=== PATIENT | female | born 1980 | race Caucasian/White ===

== ENCOUNTER → 2017-09-13 14:12 | Outpatient (CLI) | payer MEDICAID, SELFPAY ==
[2017-09-25 14:51] LABS: HPV Reflexed? NOT INDICATED
== END ==
PROVIDERS: Visit Provider Obstetrics & Gynecology
DX: Z12.4 Encounter for screening for malignant neoplasm of cervix (principal)
CPT/HCPCS: 88175; G0145

== ENCOUNTER → 2020-01-19 08:19 | Emergency (ER) | payer MEDICAID, SELFPAY ==
[2020-01-19 08:20] VITALS: BP 123/64; PULSE 80; RESP 16; TEMP 36.4; O2SAT 99; BMI 37.1
--- NOTE | 2020-01-19 08:31 | EKG12_ITS ---
Test Reason : Blood Pressure : / mmHG Vent. Rate : 063 BPM Atrial Rate : 063 BPM P-R Int : 130 ms QRS Dur : 096 ms QT Int : 408 ms P-R-T Axes : 045 035 039 degrees QTc Int : 417 ms Normal sinus rhythm with sinus arrhythmia Low voltage QRS Borderline ECG Confirmed by FABRICE NGUYEN, DENISE ([id number]), makeup editor LARISSA IZQUIERDO ([id number]) on 01/20/2020 8:22:49 AM Referred By: ARMANDO Confirmed By:DENISE AVINA MD
[2020-01-19] MEDS: Ondansetron 4 MG/2 ML Vial IV (08:49)
[2020-01-19] MEDS: Morphine 4 MG/ML Syringe IV (08:50)
[2020-01-19 09:01] LABS: Absolute Lymphocyte Count 2.03 X10^3/uL (0.83-4.51); Absolute Neutrophil Count 5.3 X10^3/uL (2.0-7.7); Basophil# 0.03 X10^3/uL; Basophil% 0.4 % (0-1); Eosinophil# 0.29 X10^3/uL; Eosinophils% 3.5 % (0-5); Hematocrit 39.7 % (37-47); Hemoglobin 12.7 g/dL (12.0-15.0); Lymphocyte # 2.03 X10^3/ul (4.0); Lymphocyte % 24.7 % (19-41); Mean Corpuscular Hgb 28.2 pg (27.0-32.0); Mean Platelet Vol. 10.1 fl (6.2-12.0); Monocyte# 0.58 X10^3/uL; Monocyte% 7.1 % (0-10); NRBC Flagged by Analyzer 0 % (0-5); Neutrophil # 5.25 X10^3/uL (2.7-7.7); Neutrophil % 63.8 % (47-70); Platelet Count 317 K/mm3 (150-450); RBC Distribution Width CV 13.7 % (11.6-14.6); RBC Distribution Width SD 44.3 fl (35.1-43.9); Red Blood Count 4.51 M/mm3 (4.2-5.4); White Blood Count 8.2 K/mm3 (4.4-11.0)
[2020-01-19 09:03] LABS: Color, Urine Yellow (Yellow); Glucose, Dipstick Normal (Normal); Ketone-Dipstick Negative (Negative); Leukocyte Esterase-Dipstick 25 /ul (Negative); Mucous, Urine 0 SEEN /hpf (<or=2+); Nitrite-Dipstick Negative (Negative); Occult Blood-Urine Negative /ul (Negative); Protein-Dipstick Negative (Negative); Red Blood Cells-Urine 0 SEEN /hpf (0-5); Specific Gravity, Urine 1.005 (1.002-1.030); Urine Bilirubin Dipstick Negative (Negative); Urine Clarity Sl. Cloudy (Clear); Urine Urobilinogen Normal (Normal)
--- NOTE | 2020-01-19 09:09 | ED.VIS.GI ---
History of Present Illness Chief Complaint: Abd Pain Narrative: Patient presenting for evaluation secondary to abdominal pain. Patient tells me that over the course of about the last week she has had left upper quadrant abdominal pain. She reports that it is basically located underneath her ribs on the left upper side of her abdomen. This is a sharp pain seems to be worse with deep palpation as well as specific movements. Associated with a sharp pain. Patient denies any fevers nausea vomiting diarrhea dysuria hematuria. Patient denies any injuries associated with this such as lifting twisting pushing pulling falls or stumbling. She is never had any prior similar episodes in the past. She does have a past surgical history of cholecystectomy. Patient denies any skin rashes. Patient was seen at an outside facility emergency department yesterday had CT imaging with IV contrast that was negative as well as lab work that was unremarkable except for some mild hematuria. Patient is still having persistent pain, so she is presenting to the emergency department. [id number] analgesics have not been alleviating her pain. Past Medical History - Allergies and Home Meds Allergies/Adverse Reactions: Allergies nitrofurantoin [From Macrobid] Allergy (Verified 01/19/20 08:19) Rash Primary Care Physician: Boni Grullon MD [Primary Care Provider] - Smoking Status: Former smoker Review of Systems All systems negative except as indicated General: Denies: Chills, Fever, Sweats Eyes: Denies: Visual changes - bilaterally, Diplopia ENT: Denies: Rhinorrhea, Sore throat Cardiovascular: Denies: Chest pain, Palpitations Respiratory: Denies: Dyspnea, Cough, Dyspnea on exertion Gastrointestinal: Reports: Abdominal pain Genitourinary: Denies: Dysuria, Hematuria, Frequency Musculoskeletal: Denies: Back pain, Extremity Pain Skin: Denies: Rash, Wounds Neurological: Denies: Headache, Weakness, Numbness Physical Exam Vital Signs/Narrative: Vital Signs Temp Pulse Resp BP Pulse Ox 01/19/20 08:20 97.6 F L 80 16 123/64 H 99 Inital Vital Signs reviewed: Yes General: Well nourished, Well developed, No Acute Distress Head: Normocephalic, Atraumatic Eyes: Perrl, EOMI ENT: Moist mucous membranes, No rhinorrhea Neck: Supple, Nontender Cardiovascular: Regular rate, Regular rhythm, No murmurs Respiratory: No distress, CTA bilaterally, Chest nontender Abdomen: Soft, Nondistended, Normal bowel sounds, Tender, - - Deep palpation of the patient's left upper quadrant with exhalation shows reproducible tenderness but no palpable masses or splenomegaly. No overlying vesicular rash noted. No rib tenderness is noted. Back: Nontender, Normal Inspection Extremities: Nontender, No edema Skin: Normal color, No rash Neurological: Alert, Oriented x3, Cranial nerves II-XII grossly intact, Normal Strength, Normal Sensation Psychological: Normal affect, Normal Mood Diagnostic/Tx/Re-eval Laboratory Data 01/19/20 01/19/20 01/19/20 08:41 08:41 08:41 WBC 8.2 RBC 4.51 Hgb 12.7 Hct 39.7 MCV 88.0 MCH 28.2 MCHC 32.0 RDW Std Deviation 44.3 H RDW Coeff of Joey 13.7 Plt Count 317 MPV 10.1 Immature Gran % (Auto) 0.500 Neut % (Auto) 63.8 Lymph % (Auto) 24.7 [place] % (Auto) 7.1 Eos % (Auto) 3.5 Baso % (Auto) 0.4 Absolute Neuts (auto) 5.3 Absolute Lymphs (auto) 2.03 Nucleated RBC % 0 D-Dimer Quant (PE/DVT) Sodium 140 Potassium 3.6 Chloride 106 Carbon Dioxide 30.0 Anion Gap 4 L BUN 9 Creatinine 0.74 Estim Creat Clear Calc 96.50 Est GFR (MDRD) Af Amer 113 Est GFR (MDRD) Non-Af 93 BUN/Creatinine Ratio 12.2 Glucose 92 Lactic Acid 1.4 Calcium 8.7 Total Bilirubin 0.40 AST 11 L ALT 18 Alkaline Phosphatase 78 Troponin I < 0.015 Total Protein 7.3 Albumin 3.3 Globulin 4.0 Albumin/Globulin Ratio 0.8 L Lipase 67 L Urine Color Urine Clarity Urine pH Ur Specific [place] Urine Protein Urine Glucose (UA) Urine Ketones Urine Occult Blood Urine Nitrite Urine Bilirubin Urine Urobilinogen Ur Leukocyte Esterase Urine RBC Urine WBC Ur Squamous Epith Cells Urine Bacteria Urine Mucus 01/19/20 01/19/20 08:41 08:41 WBC RBC Hgb Hct MCV MCH MCHC RDW Std Deviation RDW Coeff of Joey Plt Count MPV Immature Gran % (Auto) Neut % (Auto) Lymph % (Auto) [place] % (Auto) Eos % (Auto) Baso % (Auto) Absolute Neuts (auto) Absolute Lymphs (auto) Nucleated RBC % D-Dimer Quant (PE/DVT) 0.37 Sodium Potassium Chloride Carbon Dioxide Anion Gap BUN Creatinine Estim Creat Clear Calc Est GFR (MDRD) Af Amer Est GFR (MDRD) Non-Af BUN/Creatinine Ratio Glucose Lactic Acid Calcium Total Bilirubin AST ALT Alkaline Phosphatase Troponin I Total Protein Albumin Globulin Albumin/Globulin Ratio Lipase Urine Color Yellow Urine Clarity Sl. Cloudy Urine pH 7.0 Ur Specific [place] 1.005 Urine Protein Negative Urine Glucose (UA) Normal Urine Ketones Negative Urine Occult Blood Negative Urine Nitrite Negative Urine Bilirubin Negative Urine Urobilinogen Normal Ur Leukocyte Esterase 25 H Urine RBC 0 SEEN Urine WBC 0-5 SEEN Ur Squamous Epith Cells 0-5 SEEN Urine Bacteria 1+ Urine Mucus 0 SEEN - Medical Decision Making Patient presenting for evaluation secondary to abdominal pain. This did localize in the left upper quadrant and was mainly with very deep palpation. IV was established laboratory studies were obtained. CBC, chemistry, lipase and lactic acid all found to be within normal limits. I added on a D-dimer for the potential for abnormal presentation of PE this was negative. Troponin was negative. EKG found to be unremarkable. Patient was given morphine and Zofran. I was able to review the patient's CT scan from yesterday. This was a CT abdomen and pelvis with IV contrast which showed no acute inflammatory process, did show some potential mural thickening of the descending colon and sigmoid colon that was thought to be 2 under distention. If this was the cause of the patient's pain she would likely have pain throughout the left side of her abdomen rather than localized to the very upper side of the left upper quadrant under her ribs. Likewise if she had some splenic infarcts or abscess or other abnormalities there that would have showed up on her CT yesterday as she has had pain for a week. She has no signs of trauma, there is no vesicular rash, her work-up is otherwise negative. This still is most likely musculoskeletal and I do not feel that repeat imaging would provide any sort of additional diagnostic information at this time. Patient be placed on a Medrol pack and lidocaine patches. I did inform her that she should follow-up with her primary care physician this week. She voiced understanding and was discharged. ED Disposition - Plan for ED Patient: Disposition: Home or Assisted Living Diagnosis: Abdominal wall pain Instructions: ED Abdominal Pain Unkn Cause Fem, ED Strain Abdominal Muscle Prescriptions: Lidocaine [Lidoderm] 1 ea TP DAILY #10 adh..patch Prescription Printed MethylPREDNISolone DosePak [Medrol DosePak] 4 mg PO UD #1 box Prescription Printed Referrals: Boni Grullon MD [Primary Care Provider] - 3-5 Days
[2020-01-19 09:12] LABS: Bacteria 1+ /hpf (None Seen); Squamous Epithelial Cells - UA 0-5 SEEN /hpf (5-10); White Blood Cells 0-5 SEEN /hpf (0-5)
[2020-01-19 09:13] LABS: D-Dimer Quantitative (DVT/PE) 0.37 FEU/ug/m (0.27-0.49)
[2020-01-19 09:21] LABS: ALB/GLOB Ratio 0.8 RATIO (0.9-2.4); AST(SGOT) 11 U/L (15-37); Alanine Aminotransfer ALT/SGPT 18 U/L (13-56); Albumin, Serum 3.3 g/dL (3.2-5.0); Alkaline Phosphatase 78 U/L (45-117); Anion Gap 4 (5-15); BUN 9 mg/dL (7-18); BUN/Creat Ratio 12.2 RATIO (10-20); Calcium,Total 8.7 mg/dL (8.5-10.1); Chloride 106 mmol/L (98-107); Creatinine, Serum 0.74 mg/dL (0.55-1.02); EST Glomerular Filtration Rate 93 mL/min (>60); Est Glom Filt Rate - Afr Amer 113 mL/min (>60); Glucose 92 mg/dL (74-106); Lipase 67 U/L (73-393); Potassium 3.6 mmol/L (3.5-5.1); Protein, Total 7.3 g/dL (6.4-8.2); Sodium Level 140 mmol/L (136-145)
[2020-01-19 09:25] LABS: Lactic Acid 1.4 mmol/L (0.4-1.9)
== END | disposition home or self-care (01) ==
PROVIDERS: Emergency Provider Emergency Medicine; PCP Family Medicine
DX: R10.12 Left upper quadrant pain (principal); R31.9 Hematuria, unspecified
CPT/HCPCS: 80053; 81001; 83605; 83690; 84484; 85025; 85379; 93005; 96374; 96375; 99283; A4216; J2405

== ENCOUNTER 2020-01-23 08:13 | Emergency (ER) | payer MEDICAID, SELFPAY ==
[2020-01-19 08:20] VITALS: BMI 37.1
[2020-01-23 08:14] VITALS: BP 136/73; PULSE 72; RESP 18; TEMP 36.2; O2SAT 99; BMI 40.9
--- NOTE | 2020-01-23 08:27 | ED.DCSUM_ITS ---
History of Present Illness Chief Complaint: Other, Pain/Inj Informant: Patient Narrative: 39-year-old female presents with a left lower rib pain. States is been present for approximately week and a half. Patient has been seen by multiple providers for this issue. Patient was seen here approximately 4 days ago where she received extensive lab work-up. Patient has received CT of her abdomen with IV contrast which was negative. Denies any trauma to this area. Denies any nausea, vomiting, diarrhea, urinary symptoms. States that she is currently on Medrol Dosepak as well as using Lidoderm patches. Patient was given Flexeril by her primary care provider but continues to have pain. States it has become more constant. States that she felt a pop this morning in that area. Denies any numbness or tingling. Denies any chest pain or shortness of breath. Past Medical History - Allergies and Home Meds Allergies/Adverse Reactions: Allergies nitrofurantoin [From Macrobid] Allergy (Verified 01/23/20 08:17) Rash Primary Care Physician: Boni Grullon MD [Primary Care Provider] - Prior records reviewed: Yes Past Medical History: None Surgical History: no surgical history Lives: Spouse/ Significant Other Smoking Status: Former smoker Alcohol: None Drugs: None Review of Systems General: Denies: Chills, Fever, Sweats Eyes: Denies: Visual changes - bilaterally, Diplopia ENT: Denies: Rhinorrhea, Sore throat Cardiovascular: Reports: Chest pain. Denies: Palpitations Respiratory: Denies: Dyspnea, Cough, Dyspnea on exertion Gastrointestinal: Denies: Abdominal pain, Nausea, Vomiting, Diarrhea, Melena, Hematochezia Genitourinary: Denies: Dysuria, Hematuria, Frequency Musculoskeletal: Denies: Back pain, Extremity Pain Skin: Denies: Rash, Wounds Neurological: Denies: Headache, Weakness, Numbness Physical Exam Vital Signs/Narrative: Vital Signs Temp Pulse Resp BP Pulse Ox 01/23/20 08:14 97.1 F L 72 18 136/73 H 99 Inital Vital Signs reviewed: Yes General: Well nourished, Well developed, No Acute Distress Head: Normocephalic, Atraumatic Eyes: Perrl, EOMI ENT: Moist mucous membranes, No rhinorrhea Neck: Supple, Nontender Cardiovascular: Regular rate, Regular rhythm, No murmurs Respiratory: No distress, CTA bilaterally, - - focal tenderness over the left lower ribs in the lateral area. No overlying skin changes. Abdomen: Soft, Nontender, Nondistended, Normal bowel sounds Back: Nontender, Normal Inspection Extremities: Nontender, No edema Skin: Normal color, No rash Neurological: Alert, Oriented x3, Cranial nerves II-XII grossly intact, Normal Strength, Normal Sensation Psychological: Normal affect, Normal Mood Diagnostic/Tx/Re-eval Chest X-Ray - ED: 1 View, Left Infiltrate Clinical Impression(s) from Imaging Studies Chest X-Ray 01/23/20 08:35 IMPRESSION: Mild increased markings at the left lung base suggests mild degree of atelectasis and/or early infiltrate. Electronically Signed: Gurdeep Sangeetha, at 9:09 EDT , Service support , Chest CTA 01/23/20 09:19 IMPRESSION: Mild degree of increased markings at the left lung base suggesting mild atelectasis and/or early infiltrate. Electronically Signed: Gurdeep Vivas, at 9:49 EDT , Service support , - Medical Decision Making Patient appears well nontoxic. Vital signs within normal limits. Patient has tenderness over her left chest. X-ray shows possible early infiltrate. CTA was done which confirms possible early infiltrate without pulmonary embolism. Patient had extensive work-up 3 days ago including EKG and troponin. I do not feel these need to be repeated. Patient was given intramuscular Toradol which did improve her pain. Advised that she can take Naprosyn with her Medrol Dos epak. Patient will be given inhaler and doxycycline. Asked to follow-up with primary care. Asked to return for new or worsening symptoms. Patient agreeable and discharged home in stable condition. Impression: 1. Atypical pneumonia 2. Left chest wall inflammation 3. History of tobacco abuse ED Disposition - Plan for ED Patient: Disposition: Home or Assisted Living Instructions: Pneumonia Prescriptions: Doxycycline 100 mg PO BID #14 cap Prescription Printed Albuterol Inhaler [Ventolin Hfa] 1 - 2 puff INHALATION Q4H PRN PRN #1 inhaler PRN Reason: Wheezing Prescription Printed Referrals: Boni Grullon MD [Primary Care Provider] -
--- NOTE | 2020-01-23 08:35 | RAD_ITS ---
STUDY: X-RAY CHEST REASON FOR EXAM: Female, 39 years old. LEFT SIDE FLANK PAIN, SEEN WILL FOR SAME. HEARD A and quot;POP and quot; AND PAIN HAS BECOME CONSTANT. RADIATION TO SHOULDER AND BACK TECHNIQUE: PA and lateral views of the chest. COMPARISON: None. FINDINGS: Mild degree of increased markings at the left lung base suggestive of a left basilar atelectasis and/or early infiltrate. There is no demonstrated pleural abnormality. Normal size heart. Normal mediastinum and evette. Normal visualized pulmonary arteries. Normal visualized aortic arch and descending thoracic aorta. Normal visualized thoracic spine. Normal visualized ribs, clavicles, and shoulders. Surgical clips are seen in the right upper quadrant most likely secondary to prior cholecystectomy. RAD/Chest PA and Lateral IMPRESSION: Mild increased markings at the left lung base suggests mild degree of atelectasis and/or early infiltrate. Electronically Signed: Gurdeep Vivas, at 9:09 EDT , Service support ,
[2020-01-23] MEDS: Ketorolac 15 MG/ML Vial IM (08:56)
--- NOTE | 2020-01-23 09:19 | CT_ITS ---
STUDY: CTA CHEST REASON FOR EXAM: Female, 39 years old. LEFT RIB PAIN RADIATION DOSAGE (If Supplied By Facility): CTDIvol = ( 13.84 ) mGy, DLP = ( 480.12 ) mGycm TECHNIQUE: The examination was performed with the intravenous administration of IV 100mL Isovue-370. Post-processing of the angiographic images was performed, with multiplanar reformation and 3D reconstruction. Individualized dose optimization techniques were used for this CT. COMPARISON: None. FINDINGS: Normal enhancement of the main pulmonary artery and right and left pulmonary arteries. Normal enhancement of the bilateral peripheral pulmonary arteries. There is no demonstrated pulmonary embolism. Normal thoracic aorta and visualized great vessels. There is no demonstrated aortic dissection. Normal heart and pericardium. Normal mediastinum. Normal hilar regions. Normal visualized trachea and bronchi. The lungs are well expanded. Mild degree of increased markings at the left lung base suggestive of left basilar atelectasis and/or early infiltrate. Normal pleura. Normal chest wall structures. Normal osseous structures. Normal visualized upper abdomen. CT/CTA Chest W/WO Contrast IMPRESSION: Mild degree of increased markings at the left lung base suggesting mild atelectasis and/or early infiltrate. Electronically Signed: Gurdeep Vivas, at 9:49 EDT , Service support ,
[2020-01-23 10:48] VITALS: BP 138/70; PULSE 70; RESP 18; TEMP 36.6; O2SAT 99
== END 2020-01-23 10:51 | disposition home or self-care (01) ==
PROVIDERS: Emergency Provider Emergency Medicine; PCP Family Medicine
DX: J18.9 Pneumonia, unspecified organism (principal); Z87.891 Personal history of nicotine dependence; Z88.1 Allergy status to other antibiotic agents
CPT/HCPCS: 71046; 71275; 96372; 99282; Q9967

== ENCOUNTER 2021-07-07 11:38 | Emergency (ER) | payer MEDICAID, SELFPAY ==
[2021-07-07 11:39] VITALS: BP 134/87; PULSE 92; RESP 16; TEMP 36.4; O2SAT 97; BMI 39.4
--- NOTE | 2021-07-07 12:28 | EDS_ITS ---
HPI History of Present Illness HPI Narrative: Patient presents with right shoulder and arm pain that has been getting worse over the past 2 weeks. Patient states that her primary care physician did a chest x-ray because her pain was mainly in the right scapular area. Patient had pain in that area in the past when she had pneumonia. Chest x-ray did not show any pneumonia this time. There is no fracture of the scapula or shoulder. Patient states that now her pain is in her right cervical paraspinal area and radiates into the right trapezius then into the right shoulder and down the right arm to her wrist. Patient admits to some numbness and tingling in her right hand. Patient denies any weakness but states her right arm feels heavier than her left. Patient describes her pain as aching. Patient states it is worse with certain movements. Patient denies any trauma or injury. Chief Complaint: Upper Extremity Injury Informant: patient Onset/Context/Timing Onset: Weeks (1) Context: Gradual Onset Timing: Continuous Quality of Pain: Aching Location: Right cervical paraspinal area, right trapezius, right upper extremity Worsened by: Certain movements Relieved by: Nothing Associated Symptoms Associated Symptoms: Positive for Parasthesia; Negative for Weakness and Loss of Funtion PFSH PFSH Home Medications Cetirizine Hcl [Zyrtec] 10 mg PO DAILY 02/04/16 [History Last Taken 01/19/20] metoprolol tartrate 25 mg PO DAILY 01/19/20 [History Last Taken 01/19/20] sertraline 100 mg PO DAILY 01/19/20 [History Last Taken 01/18/20] cyclobenzaprine 10 mg PO QHS PRN PRN #10 tablet 07/07/21 [Rx Last Taken Unknown] hydrocodone-acetaminophen 1 tab PO Q6H PRN PRN 3 Days #10 tablet 07/07/21 [Rx Last Taken Unknown] Allergy/AdvReac Type Severity Reaction Status Date / Time nitrofurantoin Allergy Rash Verified 07/07/21 11:40 [From Macrobid] Surgical History (Updated 07/07/21 @ 12:[address] Rafael Oro DO) Hx of cholecystectomy S/P tendon repair Social History Smoking Status: Former smoker ROS ROS ED Constitutional Constitutional ED: Denies chills or fever(s) Eyes Eyes: Denies blurry vision or change in vision ENT ENT ED: Denies rhinorrhea or sore throat Cardiovascular Cardiovascular: Denies chest pain or palpitations Respiratory/Chest Respiratory/Chest: Denies cough or dyspnea Gastrointestinal Gastrointestinal: Denies nausea or vomiting Genitourinary Genitourinary ED: Denies dysuria or hematuria Musculoskeletal Musculoskeletal: Reports neck pain; Denies back pain Integumentary Denies abscess or rash Neurologic Neurologic: Denies headache(s) or weakness Allergic/Immunologic Allergic/Immunologic ED: Denies mouth swelling or urticaria EXAM Physical Exam Const Vital Signs: 07/07/21 11:39 Temperature 97.6 F L Temperature Source Temporal Pulse Rate 92 Respiratory Rate 16 Blood Pressure 134/87 H Blood Pressure Mean 102 Pulse Ox 97 Oxygen Delivery Method Room Air Positive well nourished and well developed General Appearance ED: well developed and NAD Neck supple Neck Narrative: There is tenderness over the right cervical paraspinal muscles. There is no midline tenderness. There is no bony crepitance or step-off noted. Spurling's test caused pain in the right trapezius and shoulder area but no symptoms in her right arm or wrist. Back/Spine Cervical Spine: Negative for cervical spine tenderness Thoracic Spine / Upper Back: Negative for thoracic spinal tenderness Extremity normal to inspection and full ROM Extremity Narrative: There is good range of motion of the right upper extremity. There is no obvious deformity. Radial pulses are equal bilaterally. Sensation was intact to light touch in the radial, median, and ulnar areas. Strength is 5/5 in the radial, median, and ulnar areas. Neuro oriented x3, CN's II-XII intact bilaterally, moves all extremities and no focal motor deficits Sensorium / Orientation: alert Psych mental status grossly normal MDM MDM MDM Narrative Medical decision making narrative: HeadPatient was given a dose of [place] here. CT scan of the cervical spine was obtained there is no acute abnormality. This was interpreted by the radiologist and reviewed by myself. Patient was advised of her findings. Patient was feeling somewhat better after the [place]. Patient was given a prescription for a short course of [place]. Patient was also given a prescription for Flexeril to take at bedtime. Patient was instructed to follow- up with her primary care physician in 3 to 5 days for further evaluation. Patient was instructed to continue with her physical therapy as prescribed. Patient understood and was agreeable with the plan. All questions were answered. Discharge Plan Triage Chief Complaint: Upper Extremity Injury ED Provider: Rafael Oro Dx/Rx/DC Orders Clinical Impression: Paresthesia of right upper extremity, Neck pain Instructions: ED Neck Pain, ED Paraesthesias Prescriptions: New hydrocodone-acetaminophen [hydrocodone-acetaminophen] 1 TABLET tablet 1 tab PO Q6H PRN PRN (Reason: Pain) 3 Days Qty: 10 RF: 0 cyclobenzaprine [cyclobenzaprine] 10 MG tablet 10 mg PO QHS PRN PRN (Reason: Muscle Spasm) Qty: 10 RF: 0 No Action Cetirizine Hcl [Zyrtec] 10 MG tablet 10 mg PO DAILY RF: 0 sertraline 100 MG tablet 100 mg PO DAILY RF: 0 metoprolol tartrate 25 MG tablet 25 mg PO DAILY RF: 0 Primary Care Provider: Boni Grullon Referrals: Boni Grullon MD [Primary Care Provider] - 3-5 Days Disposition Disposition: Home, Self Care
--- NOTE | 2021-07-07 12:34 | CT_ITS ---
STUDY: CT CERVICAL SPINE WITHOUT CONTRAST REASON FOR EXAM: Female, 41 years old. Injury/Pain RADIATION DOSAGE (If Supplied By Facility): CTDIvol = ( 23.60 ) mGy, DLP = ( 587.88 ) mGycm TECHNIQUE: High resolution transaxial imaging was performed without contrast material. Sagittal and coronal images were reconstructed. Individualized dose optimization techniques were used for this CT. COMPARISON: None FINDINGS: Normal craniovertebral junction. Normal anterior atlantoaxial articulation. Normal odontoid process. There is reversal of the normal cervical lordosis. Normal vertebral bodies and posterior osseous elements. C2-3: Normal endplates. Normal disc height and morphology. Normal central canal and intervertebral neuroforamina. C3-4: Normal endplates. Normal disc height and morphology. Normal central canal and intervertebral neuroforamina. C4-5: Normal endplates. Normal disc height and morphology. Normal central canal and intervertebral neuroforamina. C5-6: Normal endplates. Normal disc height and morphology. Normal central canal and intervertebral neuroforamina. C6-7: Normal endplates. Normal disc height and morphology. Normal central canal and intervertebral neuroforamina. C7-T1: Normal endplates. Normal disc height and morphology. Normal central canal and intervertebral neuroforamina. Normal visualized soft tissue structures. CT/Spine Cervical without Contras IMPRESSION: Normal unenhanced CT examination of the cervical spine. Electronically Signed: Gurdeep Vivas MD at 13:15 EDT ,
[2021-07-07] MEDS: HYDROcodone Bitartrate/Apap 5/325 Tablet PO (13:33)
== END 2021-07-07 13:52 | disposition home or self-care (01) ==
PROVIDERS: Emergency Provider Emergency Medicine; PCP Family Medicine; Visit Provider Emergency Medicine
DX: M54.2 Cervicalgia (principal); Z87.891 Personal history of nicotine dependence; R20.2 Paresthesia of skin
CPT/HCPCS: 72125; 99283

== ENCOUNTER 2023-06-19 12:19 | Emergency (ER) | payer MEDICAID, SELFPAY ==
[2023-06-19] VITALS (10 sets, daily range): BP systolic 106–124; BP diastolic 59–78; PULSE 64–97; RESP 17–25; TEMP 36.4–36.7; O2SAT 93–99; BMI 36.5
--- NOTE | 2023-06-19 12:58 | EKG12_ITS ---
Test Reason : PALPITATIONS Blood Pressure : / mmHG Vent. Rate : 086 BPM Atrial Rate : 086 BPM P-R Int : 152 ms QRS Dur : 084 ms QT Int : 362 ms P-R-T Axes : 066 041 055 degrees QTc Int : 433 ms Normal sinus rhythm Cannot rule out Anterior infarct , age undetermined Abnormal ECG Confirmed by Jasper Chester ([id number]), index editor LARISSA IZQUIERDO ([id number]) on 06/21/2023 10:55:09 AM Referred By: Confirmed By:Jasper Chester
--- NOTE | 2023-06-19 12:58 | EX.ED.DYSGE1 ---
HPI History of Present Illness Chief Complaint: Palpitations Detail of Chief Complaint: Palpitations Informant: patient Narrative Narrative: Patient presents the emergency department complaint of palpitations. Patient thinks she was in A-fib. She had similar episode 2 years ago and saw human machine interface engineer and was started on metoprolol 25 mg daily. Patient states that she was sitting a eating at rest when started having little bit of a headache and a discomfort in her upper chest and noted that her heart was racing and skipping beats. She had a pulse ox at home which checked her heart rate and it was in the 150s. EMS was called. Apparently they noted A-fib but then it resolved. Patient denies any chest pain currently has no complaints. She is not been ill. Denies recent travel or surgery. PFSH PFSH Home Medications Cetirizine Hcl [Zyrtec] 10 mg PO DAILY 02/04/16 [History Last Taken 01/19/20] metoprolol tartrate 25 mg tablet 25 mg PO DAILY 01/19/20 [History Last Taken 01/19/20] sertraline 100 mg tablet 100 mg PO DAILY 01/19/20 [History Last Taken 01/18/20] cyclobenzaprine 10 mg tablet 10 mg PO QHS PRN PRN Muscle Spasm #10 TABLETS 07/07/21 [Rx Last Taken Unknown] hydrocodone-acetaminophen 5-325mg 5mg-325mg 1 tab PO Q6H PRN PRN Pain 3 days #10 TABLETS 07/07/21 [Rx Last Taken Unknown] Allergy/AdvReac Type Severity Reaction Status Date / Time nitrofurantoin Allergy Rash Verified 07/07/21 11:40 [From Macrobid] Surgical History (Updated 07/07/21 @ 12:[address] Rafael Oro DO) Hx of cholecystectomy S/P tendon repair Social History Smoking Status: Former smoker ROS ROS ED Review of Systems ROS Unobtainable: other Constitutional Constitutional ED: Reports lethargy; Denies chills, fever(s), sweats or weight loss Eyes Eyes: Denies blurry vision, change in vision or diplopia ENT ENT ED: Denies rhinorrhea or sore throat Cardiovascular Cardiovascular: Reports palpitations and racing heartbeat; Denies chest pain or orthopnea Respiratory/Chest Respiratory/Chest: Denies cough, dyspnea, dyspnea on exertion, orthopnea or sputum Gastrointestinal Gastrointestinal: Denies abdominal pain, diarrhea, nausea or vomiting Genitourinary Genitourinary ED: Denies dysuria, hematuria or urinary frequency Musculoskeletal Musculoskeletal: Denies arthralgias, back pain, myalgias or neck pain Integumentary Denies abscess, Abrasions or rash Neurologic Neurologic: Denies headache(s) or weakness Psychiatric Psychiatric: Denies anxiety, depression or suicidal thoughts Endocrine Endocrinology: Denies polydipsia, polyphagia or polyuria Hematologic/Lymphatic Hematologic/Lymphatic: Denies easy bleeding, easy bruising or lymphadenopathy Allergic/Immunologic Allergic/Immunologic ED: Denies mouth swelling, tongue swelling or urticaria EXAM Physical Exam Const Vital Signs: 06/19/23 12:20 06/19/23 12:43 06/19/23 12:45 Temperature 98.1 F Temperature Source Oral Pulse Rate 88 89 95 Respiratory Rate 22 H 22 H 22 H Blood Pressure 118/76 106/70 Blood Pressure Mean 90 81 Pulse Ox 96 95 94 Oxygen Delivery Method Room Air 06/19/23 13:01 06/19/23 13:10 06/19/23 13:15 Temperature Temperature Source Pulse Rate 97 92 Respiratory Rate 21 H 23 H Blood Pressure 107/73 Blood Pressure Mean 83 Pulse Ox 95 95 93 Oxygen Delivery Method 06/19/23 13:20 06/19/23 13:30 06/19/23 14:00 Temperature Temperature Source Pulse Rate 87 87 Respiratory Rate 17 25 H Blood Pressure 107/73 106/65 117/59 L Blood Pressure Mean 84 78 76 Pulse Ox 96 93 97 Oxygen Delivery Method Positive well nourished and well developed General Appearance ED: well developed and NAD HEENT Reports TM's clear and moist mucous membranes normocephalic and atraumatic; Negative for trauma or tenderness Tympanic Membrane ED: Yes TM's clear Eyes PERRL and EOMs intact bilaterally General Eye ED: Negative for pale conjunctiva or scleral icterus Neck no lymphadenopathy, supple and no JVD General: Negative for tenderness Chest Wall inspection of chest normal and palpation of chest normal Chest: Negative for tenderness Resp normal respiratory effort and clear to auscultation bilaterally Effort and Inspection: Negative for respiratory distress or pain with movement Auscultation: Negative for rhonchi, wheezes or diminished lung sounds Cardio regular rate, regular rhythm, S1 normal heart sound, S2 normal heart sound and no murmurs Peripheral Pulses: pulses 2+ throughout GI normal to inspection, nondistended, normoactive bowel sounds, soft to palpation, non-tender, non-distended and no masses Back/Spine no CVA tenderness and no thoracic nor lumbar tenderness Extremity normal to inspection General Extremety ED: Negative for edema General Extremity: Negative for edema Neuro oriented x3, CN's II-XII intact bilaterally, no sensory deficits noted and gait normal Sensorium / Orientation: awake, alert, oriented to person, oriented to place and oriented to time Motor Exam: strength 5/5 throughout and strength abnormal Psych mental status grossly normal Skin no rashes or lesions noted and no wounds MDM MDM MDM Narrative Medical decision making narrative: Patient presents with tachycardia now resolved. History of A-fib. Currently on metoprolol. IV line established. EKG obtained arrival showed a sinus rhythm with ventricular rate of 86 bpm with no acute ST segment changes. I did review her EKG that was sent in by EMS and at that time she was sinus rhythm as well with a heart rate of 83 bpm. CBC with differential white count of 10.8 with hemoglobin 14.4 and platelet count of 346. Chemistries unremarkable. Troponin was normal at 3. 1 view chest x-ray unremarkable. Discussed case with human machine interface engineer on-call Dr. Boles. Did not feel any further treatment was indicated at this time and asked that patient follow-up with her primary care physician. Patient will be discharged to home with diagnosis of paroxysmal A-fib. It was not felt she needed anticoagulation. Patient comfortable with plan. Lab Data Attestation: I reviewed the patient's lab results. Labs: Laboratory Results - last 24 hr 06/19/23 13:00 WBC 10.8 RBC 5.13 Hgb 14.4 Hct 44.8 MCV 87.3 MCH 28.1 MCHC 32.1 RDW Std Deviation 43.1 RDW Coeff of Joye 13.4 Plt Count 346 MPV 11.0 Immature Gran % (Auto) 0.600 Neut % (Auto) 65.5 Lymph % (Auto) 27.1 [place] % (Auto) 3.4 Eos % (Auto) 2.8 Baso % (Auto) 0.6 Absolute Neuts (auto) 7.1 Absolute Lymphs (auto) 2.92 Nucleated RBC % 0 Sodium 138 Potassium 3.4 L Chloride 104 Carbon Dioxide 26.0 Anion Gap 8 BUN 11 Creatinine 0.81 Estim Creat Clear Calc 109.50 Est GFR (MDRD) Af Amer 100 Est GFR (MDRD) Non-Af 83 BUN/Creatinine Ratio 13.6 Glucose 115 H Calcium 9.3 Troponin I High Sens 3 Radiography Diagnostic Testing: Clinical Impression(s) from Imaging Studies Chest X-Ray 06/19/23 13:14 IMPRESSION: Normal x-ray examination of the chest. Electronically Signed: Gurdeep Vivas MD at 14:13 EDT , 1 view chest x-ray obtained interpreted by myself no evidence of infiltrate or pneumothorax or acute disease process. Radiology in agreement. EKG Initial EKG: Attestation: I personally reviewed and interpreted this EKG as follows: Comments: Sinus rhythm with ventricular rate of 86 bpm with no acute ST segment changes Discharge Plan Triage Chief Complaint: Palpitations ED Provider: Maurice Black Dx/Rx/DC Orders Clinical Impression: AF (paroxysmal atrial fibrillation) Instructions: AFib Dc Prescriptions: No Action Cetirizine Hcl [Zyrtec] 10 MG tablet 10 mg PO DAILY Patient Comments: ALLERGIES sertraline 100 MG tablet 100 mg PO DAILY metoprolol tartrate 25 MG tablet 25 mg PO DAILY hydrocodone-acetaminophen [hydrocodone-acetaminophen] 1 TABLET tablet 1 tab PO Q6H PRN PRN (Reason: Pain) 3 Days Qty: 10 0RF cyclobenzaprine [cyclobenzaprine] 10 MG tablet 10 mg PO QHS PRN PRN (Reason: Muscle Spasm) Qty: 10 0RF Primary Care Provider: Boni Grullon Referrals: Greg Boles MD [Med Staff - Active Staff] - As Needed Boni Grullon MD [Primary Care Provider] - 3-5 Days Disposition Disposition: Home, Self Care
[2023-06-19] MEDS: 0.9% Normal Saline (1000mL) 1,000 ML 150 ML IV (13:09)
--- NOTE | 2023-06-19 13:14 | RAD_ITS ---
STUDY: X-RAY CHEST REASON FOR EXAM: Female, 43 years old. Tachycardia TECHNIQUE: Single AP portable view of the chest. COMPARISON: Comparison is made with prior study January 23, 2020. FINDINGS: EKG electrodes are seen. The lungs are clear and expanded. There is no demonstrated pleural abnormality. Normal size heart. Normal mediastinum and evette. Normal visualized pulmonary arteries. Normal visualized aortic arch and descending thoracic aorta. Normal visualized thoracic spine. Normal visualized ribs, clavicles, and shoulders. There is no demonstrated abnormality of the visualized soft tissue structures of the upper abdomen. RAD/Chest 1 View (Portable) IMPRESSION: Normal x-ray examination of the chest. Electronically Signed: Gurdeep Vivas MD at 14:13 EDT ,
[2023-06-19 13:17] LABS: Absolute Lymphocyte Count 2.92 X10^3/uL (0.83-4.51); Absolute Neutrophil Count 7.1 X10^3/uL (2.0-7.7); Basophil# 0.06 X10^3/uL; Basophil% 0.6 % (0-1); Eosinophils% 2.8 % (0-5); Hematocrit 44.8 % (37-47); Hemoglobin 14.4 g/dL (12.0-15.0); Lymphocyte # 2.92 X10^3/ul (0.83-4.51); Lymphocyte % 27.1 % (19-41); Mean Corp Hgb Conc 32.1 g/dL (32-36); Mean Corpuscular Hgb 28.1 pg (27.0-32.0); Mean Corpuscular Volume 87.3 fL (81-99); Monocyte# 0.37 X10^3/uL; Monocyte% 3.4 % (0-10); NRBC Flagged by Analyzer 0 % (0-5); Neutrophil # 7.08 X10^3/uL (2.7-7.7); Neutrophil % 65.5 % (47-70); Platelet Count 346 K/mm3 (150-450); RBC Distribution Width CV 13.4 % (11.6-14.6); RBC Distribution Width SD 43.1 fl (35.1-43.9); Red Blood Count 5.13 M/mm3 (4.2-5.4); White Blood Count 10.8 K/mm3 (4.4-11.0)
[2023-06-19 13:35] LABS: Anion Gap 8 (5-15); BUN 11 mg/dL (7-18); BUN/Creat Ratio 13.6 RATIO (10-20); Calcium,Total 9.3 mg/dL (8.5-10.1); Chloride 104 mmol/L (98-107); Creatinine, Serum 0.81 mg/dL (0.55-1.02); EST Glomerular Filtration Rate 83 mL/min (>60); Est Glom Filt Rate - Afr Amer 100 mL/min (>60); Glucose 115 mg/dL (74-106); Potassium 3.4 mmol/L (3.5-5.1); Sodium Level 138 mmol/L (136-145); Troponin-I HS 3 pg/mL (3.0-54.0)
== END 2023-06-19 14:32 | disposition home or self-care (01) ==
PROVIDERS: Emergency Provider Emergency Medicine; PCP Family Medicine; Visit Provider Emergency Medicine
DX: I48.0 Paroxysmal atrial fibrillation (principal); Z87.891 Personal history of nicotine dependence; Z79.899 Other long term (current) drug therapy
CPT/HCPCS: 71045; 80048; 84484; 85025; 93005; 96360; 96361; 99283

== ENCOUNTER 2024-04-10 05:40 | Emergency (ER) | payer MEDICAID, SELFPAY ==
[2024-04-10 05:41] VITALS: BP 119/97; PULSE 120; RESP 18; TEMP 37; O2SAT 98; BMI 37.4
[2024-04-10 05:53] VITALS: PULSE 89; RESP 17; O2SAT 98
--- NOTE | 2024-04-10 05:55 | EKG12_ITS ---
Test Reason : A FIB Blood Pressure : */* mmHG Vent. Rate : 166 BPM Atrial Rate : 178 BPM P-R Int : * ms QRS Dur : 78 ms QT Int : 256 ms P-R-T Axes : * 55 17 degrees QTcB Int : 425 ms Critical Test Result: High HR Atrial fibrillation Nonspecific ST depression Abnormal ECG Confirmed by Jasper Chester ([id number]), order editor LARISSA IZQUIERDO ([id number]) on 04/11/2024 9:37:24 AM Referred By: DARRYL Confirmed By: Jasper Chester
--- NOTE | 2024-04-10 05:56 | EKG12_ITS ---
Test Reason : RYTHM CHANGE Blood Pressure : */* mmHG Vent. Rate : 82 BPM Atrial Rate : 82 BPM P-R Int : 150 ms QRS Dur : 84 ms QT Int : 380 ms P-R-T Axes : 72 39 52 degrees QTcB Int : 443 ms Normal sinus rhythm Low voltage QRS Borderline ECG Confirmed by Jasper Chester ([id number]), deputy editor in chief LARISSA IZQUIERDO ([id number]) on 04/11/2024 9:36:57 AM Referred By: DRARYL Confirmed By: Jasper Chester
[2024-04-10 06:08] LABS: Absolute Lymphocyte Count 3.24 X10^3/uL (0.83-4.51); Absolute Neutrophil Count 7.6 X10^3/uL (2.0-7.7); Basophil# 0.05 X10^3/uL; Basophil% 0.4 % (0-1); Eosinophil# 0.26 X10^3/uL; Eosinophils% 2.2 % (0-5); Hematocrit 45.7 % (37-47); Lymphocyte # 3.24 X10^3/ul (0.83-4.51); Lymphocyte % 27.1 % (19-41); Mean Corp Hgb Conc 32.8 g/dL (32-36); Mean Corpuscular Hgb 28.6 pg (27.0-32.0); Mean Platelet Vol. 10.3 fl (6.2-12.0); Monocyte# 0.78 X10^3/uL; Monocyte% 6.5 % (0-10); NRBC Flagged by Analyzer 0 % (0-5); Neutrophil # 7.58 X10^3/uL (2.7-7.7); Neutrophil % 63.3 % (47-70); Platelet Count 348 K/mm3 (150-450); RBC Distribution Width CV 12.8 % (11.6-14.6); RBC Distribution Width SD 40.5 fl (35.1-43.9); Red Blood Count 5.25 M/mm3 (4.2-5.4)
[2024-04-10] MEDS: 0.9% Normal Saline (1000mL) 1,000 ML 999 ML IV (06:08)
[2024-04-10 06:34] LABS: Anion Gap 7 (5-15); BUN 11 mg/dL (7-18); BUN/Creat Ratio 14.7 RATIO (10-20); Calcium,Total 9.4 mg/dL (8.5-10.1); Chloride 103 mmol/L (98-107); Creatinine, Serum 0.75 mg/dL (0.55-1.02); EST Glomerular Filtration Rate 90 mL/min (>60); Est Glom Filt Rate - Afr Amer 109 mL/min (>60); Estimated Creatinine Clearance 118.64 ml/min; Glucose 108 mg/dL (74-106); Magnesium 2.3 mg/dL (1.6-2.6); Potassium 3.6 mmol/L (3.5-5.1); Sodium Level 138 mmol/L (136-145)
[2024-04-10 06:41] VITALS: BP 111/57; PULSE 99; RESP 18; O2SAT 98
[2024-04-10 07:00] VITALS: BP 115/58; PULSE 92; RESP 18; O2SAT 98
--- NOTE | 2024-04-10 07:31 | EDS_ITS ---
HPI History of Present Illness Chief Complaint: Palpitations Informant: patient Narrative Narrative: Patient is a 44-year-old female with past medical history of paroxysmal atrial fibrillation. She states that she is on metoprolol succinate 25 mg once a day to help with rate control. She states she is not on anticoagulation. She reports that she rarely develops A-fib and her last event was most likely a year ago. She states she does not follow with cardiology. She reports that she woke this morning and felt off. She states she felt tired and like her heart was racing. She states that prior to waking up this morning feeling abnormal she has otherwise been healthy without sick symptoms. She denies any change in her medication she denies any illicit drug use or excessive stimulant use. She states that she believes symptoms been present for less than 12 hours. As they are not resolving she presents for evaluation [facility] Medical History (Updated 04/10/24 @ 22:[address] Erick Sims, DO) History of pneumonia History of allergic urticaria History of depression History of atrial fibrillation History of environmental allergies Home Medications ?Medication ?Instructions ?Recorded ?Last Taken ?Type metoprolol tartrate 25 mg tablet 25 mg PO DAILY 01/19/20 01/19/20 History sertraline 100 mg tablet 100 mg PO DAILY 01/19/20 01/18/20 History cyclobenzaprine 10 mg tablet 10 mg PO QHS PRN PRN Muscle Spasm 07/07/21 Unknown Rx #10 TABLETS hydrocodone-acetaminophen 5-325mg 1 tab PO Q6H PRN PRN Pain 3 days 07/07/21 Unknown Rx 5mg-325mg #10 TABLETS clonazepam 0.5 mg tablet 0.5 mg PO QDAY 02/12/24 Unknown History metoprolol succinate 25 mg 25 mg PO QDAY 02/12/24 Unknown History tablet,extended release 24 hr sertraline 100 mg tablet (Zoloft) 150 mg PO QDAY 02/12/24 Unknown History metoprolol succinate 25 mg 25 mg PO BID 30 days #60 tabs 04/10/24 Unknown Rx tablet,extended release 24 hr Allergy/AdvReac Type Severity Reaction Status Date / Time nitrofurantoin (From Allergy Rash Verified 04/10/24 05:41 Macrobid) Family History (Updated 02/12/24 @ 14:46 by Montse Nguyen) Mother Anxiety Arthritis High cholesterol Father Diabetes High cholesterol Surgical History (Updated 02/12/24 @ 14:46 by Montse Nguyen) History of colposcopy S/P tendon repair Hx of cholecystectomy Social History (Updated 02/12/24 @ 14:57 by Montse Nguyen) Smoking Status: Current every day smoker tobacco type: cigarettes how long ago did patient quit smoking: pt vapes alcohol intake: current substance use type: marijuana additional social history: pt vapes, uses marijuana, denies use of edibles, uses ibuprofen , does not use aspirin. ROS ROS ED Constitutional Constitutional ED: Denies chills or fever(s) Eyes Eyes: Denies blurry vision or change in vision ENT ENT ED: Denies sore throat Cardiovascular Cardiovascular: Reports palpitations and racing heartbeat; Denies chest pain Respiratory/Chest Respiratory/Chest: Denies cough or dyspnea Gastrointestinal Gastrointestinal: Denies abdominal pain, diarrhea, nausea or vomiting Genitourinary Genitourinary ED: Denies dysuria Musculoskeletal Musculoskeletal: Denies myalgias Integumentary Denies rash Neurologic Neurologic: Denies headache(s) Hematologic/Lymphatic Hematologic/Lymphatic: Denies easy bleeding or easy bruising EXAM Physical Exam Const Vital Signs: 04/10/24 05:41 04/10/24 05:41 04/10/24 05:53 Temperature 98.6 F Temperature Source Oral Pulse Rate 120 H 89 Respiratory Rate 18 17 Respiratory Effort Normal Non-Labored Blood Pressure 119/97 H Blood Pressure Mean 104 Pulse Ox 98 98 Oxygen Delivery Method Room Air Room Air 04/10/24 06:41 04/10/24 07:00 04/10/24 07:38 Temperature 97.9 F Temperature Source Pulse Rate 99 92 79 Respiratory Rate 18 18 18 Respiratory Effort Blood Pressure 111/57 L 115/58 L 124/74 H Blood Pressure Mean 75 77 90 Pulse Ox 98 98 98 Oxygen Delivery Method Room Air Room Air Positive well nourished, well developed and obese General Appearance ED: well developed; Negative for pallor Nutritional Appearance: obese HEENT Reports moist mucous membranes Eyes PERRL and EOMs intact bilaterally General Eye ED: Negative for scleral icterus Neck supple and no JVD Resp normal respiratory effort and clear to auscultation bilaterally Cardio Rate: other Other Details: Irregularly irregular rhythm with tachycardic rate consistent with atrial fibrillation Radial and carotid pulses are equal and symmetric GI normal to inspection, nondistended, normoactive bowel sounds, non-tender, non- distended and no masses Auscultation: normoactive bowel sounds Palpation: soft Extremity normal to inspection Extremity Narrative: No asymmetric edema no pitting edema negative Homans' sign bilaterally Neuro oriented x3, CN's II-XII intact bilaterally and no sensory deficits noted Sensorium / Orientation: alert Motor Exam: strength 5/5 throughout Psych mental status grossly normal Skin no rashes or lesions noted General Skin Exam: Negative for jaundice or pallor MDM MDM MDM Narrative Medical decision making narrative: Patient presented to the ER in A-fib with RVR consistent with a history of p aroxysmal atrial fibrillation. In order to rule out acute blood loss anemia acute kidney injury hypokalemia hypomagnesemia or thyroid disorder as a potential cause basic lab work was obtained. While patient was being evaluated she spontaneously cardioverted and repeat EKG confirmed normal sinus rhythm without ischemic changes. She was watched in the ER while awaiting laboratory result. She remained in normal sinus rhythm the entire time and therefore there is no need for treatment with further doses of metoprolol Cardizem or digoxin. Blood work revealed no obvious cause for her A-fib. She does state that her mother and her sister both have atrial fibrillation as well and therefore this is most likely a congenital variant. As the patient does not follow with cardiology I did discuss the case with Dr. Chester. Her Alden Vascor is low at a value of 1 and therefore he only recommends a full-strength aspirin daily for anticoagulation versus true anticoagulation with Eliquis or Xarelto. He does recommend that her metoprolol be increased to 25 mg twice a day to help with potential A-fib reemergence or rate control. This plan of care was discussed with the patient she is agreeable to it and will follow-up with cardiology in the next few weeks for further evaluation. However at this time as she is spontaneous converted to normal sinus rhythm vitals are stable and lab work reveals no clinically significant findings she is otherwise safe for discharge History & Record Review Discussion w/independent historian: Patient Lab Data Attestation: I reviewed the patient's lab results. Labs: Laboratory Results - last 24 hr 04/10/24 05:45 WBC 12.0 H RBC 5.25 Hgb 15.0 Hct 45.7 MCV 87.0 MCH 28.6 MCHC 32.8 RDW Std Deviation 40.5 RDW Coeff of Joey 12.8 Plt Count 348 MPV 10.3 Immature Gran % (Auto) 0.500 Neut % (Auto) 63.3 Lymph % (Auto) 27.1 [place]igg % (Auto) 6.5 Eos % (Auto) 2.2 Baso % (Auto) 0.4 Absolute Neuts (auto) 7.6 Absolute Lymphs (auto) 3.24 Nucleated RBC % 0 Sodium 138 Potassium 3.6 Chloride 103 Carbon Dioxide 28.0 Anion Gap 7 BUN 11 Creatinine 0.75 Estim Creat Clear Calc 118.64 Est GFR (MDRD) Af Amer 109 Est GFR (MDRD) Non-Af 90 BUN/Creatinine Ratio 14.7 Glucose 108 H Calcium 9.4 Magnesium 2.3 TSH 1.640 Discharge Plan Triage Chief Complaint: Palpitations ED Provider: Erick Sims Dx/Rx/DC Orders Clinical Impression: Paroxysmal atrial fibrillation, Depression Instructions: AFib Dc Prescriptions: New metoprolol succinate 25 mg tablet extended release 24 hr 25 mg PO BID 30 Days Qty: 60 0RF No Action sertraline [Zoloft] 100 mg tablet 150 mg PO QDAY metoprolol succinate 25 mg tablet extended release 24 hr 25 mg PO QDAY clonazepam 0.5 mg tablet 0.5 mg PO QDAY sertraline 100 MG tablet 100 mg PO DAILY metoprolol tartrate 25 MG tablet 25 mg PO DAILY hydrocodone-acetaminophen [hydrocodone-acetaminophen] 1 TABLET tablet 1 tab PO Q6H PRN PRN (Reason: Pain) 3 Days Qty: 10 0RF cyclobenzaprine [cyclobenzaprine] 10 MG tablet 10 mg PO QHS PRN PRN (Reason: Muscle Spasm) Qty: 10 0RF Primary Care Provider: Boni Grullon Referrals: Jasper Chester MD [Med Staff - Active Staff] - Boni Grullon MD [Primary Care Provider] - Activity Restrictions/Additional Instructions: Please change her metoprolol dose to twice a day and take a full-strength aspirin once daily to help prevent risk of stroke from your paroxysmal A-fib. Have your family doctor evaluate you for obstructive sleep apnea as this could be a cause of your intermittent abnormal heart rhythm and follow-up with cardiology for repeat evaluation. Print Language: Cameroonian Disposition Disposition: Home, Self Care Discharge Date/Time: 04/10/24 07:53
[2024-04-10 07:38] VITALS: BP 124/74; PULSE 79; RESP 18; TEMP 36.6; O2SAT 98
== END 2024-04-10 07:53 | disposition home or self-care (01) ==
PROVIDERS: Emergency Provider Emergency Medicine; PCP Family Medicine; Visit Provider Emergency Medicine
DX: I48.0 Paroxysmal atrial fibrillation (principal); F32.A Depression, unspecified; Z79.899 Other long term (current) drug therapy; F17.210 Nicotine dependence, cigarettes, uncomplicated; E66.9 Obesity, unspecified
CPT/HCPCS: 80048; 83735; 84443; 85025; 93005; 96360; 99283; A4216